=== PATIENT | female | born 1950 | race Asian ===

== ENCOUNTER → 2025-08-04 10:00 | Outpatient (CLI) | payer MEDICARE, OTHER, SELFPAY ==
--- NOTE | 2025-08-18 18:05 | DI.NM.S_ITS ---
DATE OF SERVICE: 08/04/2025 NUCLEAR CARDIOLOGY MYOCARDIAL PERFUSION STUDY PROCEDURE: Exercise treadmill stress and rest myocardial perfusion imaging with gating to assess ejection fraction and regional wall motion. ORDERING PROVIDER: Madeline Terry M.D. 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 CARDIAC STRESS: The patient was able to exercise for 6 minutes on a standard Khanh protocol suggesting good exercise capacity with an UNA of -7%, achieving 6.1 METS. She had a normal heart rate and blood pressure response to exercise, achieving a maximum heart rate of 150 bpm (101% of her predicted maximum). She had moderate exertional dyspnea but no chest discomfort or other anginal symptoms. Her resting ECG shows normal ST segments and there are no significant ST-segment shifts with stress. She had rare isolated PVCs but no complex ectopy. At 4 minutes 30 seconds of exercise at a heart rate of 130 bpm, 26.1 millicuries of technetium-99m Myoview was injected and she was imaged 15 minutes later using a gated SPECT acquisition protocol. Three days earlier while at rest she had been injected with 24.9 millicuries of technetium-99m Myoview was imaged 15 minutes later, again using a gated SPECT acquisition protocol. FINDINGS: 1. Raw data. There is fairly good myocardial tracer uptake with some subtle chest wall attenuation noted over the anterior wall. The lung/heart ratio is normal at 0.30 with a normal TID ratio of 1.04. 2. Quantitated gated SPECT: Post-stress ejection fraction is 48% with mild global hypokinesis, slightly worse at the base than the apex, but no focal wall motion abnormality. Resting ejection fraction is 47% with a mildly increased resting end-diastolic volume of 118 mL. 3. Myocardial perfusion imaging: Post-stress supine images show a fairly normal perfusion pattern except a subtle defect in the very distal anterior wall and apex, extending into the very distal inferior wall but this defect essentially resolves on prone imaging revealing a normal perfusion pattern. The resting images show a similar perfusion pattern to that of the post-stress supine images with minimal, if any improvement in the defect at the apex. IMPRESSION: 1. Probable normal myocardial perfusion study for ischemia. 2. Small, predominantly fixed, minimally reversible perfusion defect in the very distal anterior wall, apex and distal inferior wall that essentially resolves on the prone images, suggesting it reflects attenuation artifact although a small previous nontransmural infarction with possible minimal elle-infarct ischemia cannot be excluded. The absence of any wall motion abnormality in this distribution would mitigate against a significant infarction. 3. Mildly impaired left ventricular systolic function globally, worse at the base than the apex, which appears to have fairly normal contractility. Left ventricular volumes are mildly increased. 4. Good exercise capacity without angina or ECG evidence of ischemia. There were rare isolated PVCs but no complex ectopy. Carri Cole - RS/fn/CUST[employer]ER [employer]CCESS INTERN doc#: [id number]/job#: [id number] dd: 08/18/2025 17:01:00 dt: 08/18/2025 17:33:00 DICTATING MD/COPIES TO: Rashad Solorzano MD; Madeline Terry M.D. COPIES MNE: LEE ANN;
== END ==
PROVIDERS: Referring Provider Internal Medicine Cardiovascular Disease; Visit Provider Internal Medicine Cardiovascular Disease
DX: I42.9 Cardiomyopathy, unspecified (principal); Z85.3 Personal history of malignant neoplasm of breast; Z92.21 Personal history of antineoplastic chemotherapy
CPT/HCPCS: 78452; 93017; A9502